=== PATIENT | male | born 1975 | race Caucasian/White ===

== ENCOUNTER 2017-04-05 14:48 | Emergency (ER) | payer SELFPAY ==
[~2017-04-05] VITALS: Ht 175.3 cm; Wt 91.0 kg
[2017-04-05 15:10] VITALS: BP 140/98
[2017-04-05] MEDS ORDERED: AMLO5TAB4 PO (15:15)
== END 2017-04-05 21:52 | disposition left against medical advice (07) ==
LOC: ER 21:35
DX: R10.9 Unspecified abdominal pain (principal); R11.2 Nausea with vomiting, unspecified; R19.7 Diarrhea, unspecified; Z53.21 Procedure and treatment not carried out due to patient leaving prior to being seen by health care provider

== ENCOUNTER 2017-06-28 16:36 | Emergency (ER) | payer SELFPAY ==
[~2017-06-28] VITALS: Ht 177.8 cm; Wt 80.0 kg
[~2017-06-28 16:36] MED LIST: AMLO5TAB4 PO
[2017-06-28 16:39] VITALS: BP 130/79
[2017-06-28] MEDS ORDERED: SODIUM CHLORIDE 0.9% 1,000 ML IV ONE (16:53)
[2017-06-28] MEDS ORDERED: DEXTROSE 50% WATER 50ML SYRINGE IV ONE (17:30)
== END 2017-06-28 18:16 | disposition left against medical advice (07) ==
LOC: ER 16:46
DX: R07.9 Chest pain, unspecified (principal); Z53.21 Procedure and treatment not carried out due to patient leaving prior to being seen by health care provider
CPT/HCPCS: J7030; Z7610